=== PATIENT | male | born 1985 | race Two or more races ===

== ENCOUNTER 2017-02-10 17:34 | Emergency (ER) | payer OTHER ==
[~2017-02-10] VITALS: Ht 162.6 cm; Wt 54.4 kg
--- NOTE | 2017-02-10 18:22 | NUR ---
Patient discharged to home in stable conditon. Written and verbal after care instructions given. Patient verbalizes understanding of instructions.
== END 2017-02-10 18:34 | disposition home or self-care (01) ==
LOC: ER 18:28
DX: T26.11XA Burn of cornea and conjunctival sac, right eye, initial encounter (principal); X08.8XXA Exposure to other specified smoke, fire and flames, initial encounter; Y93.89 Activity, other specified; Y92.9 Unspecified place or not applicable; Y99.9 Unspecified external cause status
CPT/HCPCS: A4663